=== PATIENT | male | born 1970 | race Caucasian/White ===

== ENCOUNTER 2024-06-23 17:15 | Emergency (ER) | payer OTHER ==
[~2024-06-23] VITALS: Ht 182.9 cm; Wt 104.2 kg
[~2024-06-23 17:15] MED LIST: CARAFATE1 GM PO
[2024-06-23] MEDS ORDERED: NADOLOL80 MG PO (17:24)
[2024-06-23] MEDS ORDERED: VAZALORE81 MG PO (17:25)
[2024-06-23] MEDS ORDERED: LOPERAMIDE2 MG PO (17:26)
[2024-06-23] MEDS ORDERED: FLUOROMETHOLONE5 ML OPTH (17:26)
[2024-06-23] MEDS ORDERED: OMEPRAZOLE20 MG PO (17:26)
[2024-06-23] MEDS ORDERED: LIPITOR20 MG PO (17:26)
[2024-06-23] MEDS ORDERED: HYDROCHLOROTH12.5 M1 PO (17:27)
[2024-06-23] MEDS ORDERED: MONTELUKAST SOD10 MG PO (17:27)
[2024-06-23] MEDS ORDERED: LEVOTHYROXINE100 MC2 PO (17:27)
[2024-06-23] MEDS ORDERED: ZESTRIL40 MG PO (17:28)
[2024-06-23] MEDS ORDERED: HYDROCODONE/APAP 10/325 1 TAB PO ONE (18:45)
[2024-06-23 20:55] VITALS: BP 161/65
== END 2024-06-23 20:55 | disposition other institution, planned readmission (95) ==
LOC: ED 17:15
DX: S93.601A Unspecified sprain of right foot, initial encounter (principal); I25.2 Old myocardial infarction; I11.0 Hypertensive heart disease with heart failure; I50.9 Heart failure, unspecified; W10.9XXA Fall (on) (from) unspecified stairs and steps, initial encounter; Z79.899 Other long term (current) drug therapy; Z79.82 Long term (current) use of aspirin
CPT/HCPCS: 73610; 73630; 99283; A9270

== ENCOUNTER 2025-02-04 18:43 | Inpatient (IN) | payer OTHER ==
[~2025-02-04] VITALS: Ht 182.9 cm; Wt 103.7 kg
[~2025-02-04 18:43] MED LIST changes: +ADULT ASPIRIN R81 MG PO; +FLUOROMETHOLONE5 ML OPTH; +HYDROCHLOROTH12.5 M1 PO; +LIPITOR20 MG PO; +LOPERAMIDE2 MG PO; +MONTELUKAST SOD10 MG PO; +NADOLOL80 MG PO; +OMEPRAZOLE20 MG PO; +SEVOFLURANE 250 ML BTL INH ONE; +SYNTHROID112 MCG PO; +ZESTRIL40 MG PO
[2025-02-04 19:13] LABS: BASOPHILS 0.9 % (0.2-1.2); EOSINOPHILS 1.7 % (0.8-7.0); LYMPHOCYTES 13.8 % (21.8-53.1); MCH 27.7 PG (25.7-32.2); MCHC 32.1 g/dL (32.3-36.5); MCV 86.2 fL (79.0-92.2); MONOCYTES 9.6 % (5.3-12.2); NEUTROPHILS 73.5 % (34.0-67.9); RBC 4.84 M/uL (4.63-6.08)
[2025-02-04 19:23] LABS: ALT (SGPT) 9.0 U/L (14-59); AST (SGOT) 12.0 U/L (15-37); GLOMERULAR FILTRATION RATE,EST 106.0 mL/min (>60); PROTEIN, TOTAL 7.1 g/dL (6.4-8.2); UREA NITROGEN 11.0 mg/dL (7-18)
[2025-02-04] MEDS ORDERED: LACTATED RINGER'S 1,000 ML IV ONE (20:00)
[2025-02-04] MEDS ORDERED: HYDROmorphone HCL 1 MG/ML SYR IV PRN (20:00)
[2025-02-04] MEDS ORDERED: FAMOTIDINE 20 MG/ 2 ML VIAL IV SCH ×2 (22:12)
[2025-02-04] MEDS ORDERED: DEXTROSE 5% - LACTATED RINGERS 1,000 ML IV SCH ×2 (22:15)
[2025-02-04] MEDS ORDERED: PROCHLORPERAZINE EDISYLATE 10 MG/2 ML VIAL IV PRN ×2 (22:15)
[2025-02-04] MEDS ORDERED: HYDROMORPHONE IV PRN ×2 (22:15)
[2025-02-04] MEDS ORDERED: NALOXONE HCL 2 MG/2 ML SYR IV ONE ×2 (22:30)
[2025-02-04] MEDS ORDERED: PIPERACILLIN/TAZOBACTAM 4.5 GM in DEXTROSE 5% 100 ML IV SCH (22:45)
[2025-02-04] MEDS ORDERED: HYDROMORPHONE IV SCH (22:45)
[2025-02-04] MEDS ORDERED: NALOXONE HCL 0.4 MG SYR IV PRN (22:45)
[2025-02-04] MEDS ORDERED: HYDROmorphone HCL 1 MG/ML SYR IV ONE (23:30)
[2025-02-04 23:45] VITALS: BP 149/98
[2025-02-05] VITALS (11 sets, daily range): BP systolic 140–169; BP diastolic 80–111
--- NOTE | 2025-02-05 01:04 | NUR ---
PT TO FLOOR AT APPROX 2350 WITH ED RN VIA STRETCHER. PT ALERT AND ORIENTED. PT IN FOUR POINT RESTRAINTS. GUARDS X 2 PRESENT. PT ABLE TO TRANSFER SELF FROM BED TO STRETCHER. REPORTS RECEIVED. VS OBTAINED. PT REPORTS ABD PAIN TOLERABLE AT THIS TIME. DENIES NAUSEA. BOWEL TONES ACTIVE. ABD SOFT. UP TO BR WITH GUARD ASSIST TO VOID AND HAVE BM. PT ORIENTED TO ROOM AND NURSE CALL LIGHT. DENIES QUESTIONS OR CONCERNS. CALL LIGHT IN REACH.
--- NOTE | 2025-02-05 02:28 | NUR ---
EMERGENCY VETERINARIAN STARTED PER MD ORDER. VERIFIED WITH FLOAT AND SUMMER LAW ASSOCIATE. EMERGENCY VETERINARIAN INSTRUCTIONS PROVIDED TO PATIENT AND GUARDS X 2 IN ROOM. QUESTIONS ANSWERED. CPOX IN PLACE. PT NPO. ORAL SWABS PROVIDED. IVF INFUSING PER ORDER. NO FURTHER NEEDS. CALL LIGHT IN REACH.
[2025-02-05 03:39] LABS: BLOOD/HGB, URINE TRACE-I (Negative); KETONE, URINE NEGATIVE (Negative); LEUK ESTERASE, URINE NEGATIVE (negative); NITRITE, URINE NEGATIVE (negative)
--- NOTE | 2025-02-05 03:42 | NUR ---
CALL LIGHT ANSWERED. PT UP TO BR TO VOID AND HAVE SMALL LIQUID BM. BACK TO BED, KAYLA WELL. UA SENT TO LAB. PT REPORTS PAIN TOLERABLE WITH VP EMERGING MEDIA. EtCO2 MONITOR IN PLACE. NO FURTHER NEEDS.
[2025-02-05 03:44] LABS: BACTERIA, URINE RARE /hpf (negative); CASTS, URINE NONE SEEN \\lpf; CRYSTALS, URINE NONE SEEN (0-1+); EPITHELIAL CELLS, URINE SQUAMOUS 1+ /lpf (0-1+); REFLEX CULTURE, URINE No (No)
[2025-02-05 05:21] LABS: BASOPHILS 1.1 % (0.2-1.2); EOSINOPHILS 1.8 % (0.8-7.0); LYMPHOCYTES 14.1 % (21.8-53.1); MCH 28.3 PG (25.7-32.2); MCHC 32.8 g/dL (32.3-36.5); MCV 86.4 fL (79.0-92.2); MONOCYTES 11.8 % (5.3-12.2); NEUTROPHILS 70.5 % (34.0-67.9); RBC 4.63 M/uL (4.63-6.08)
[2025-02-05] MEDS ORDERED: PIPERACILLIN/TAZOBACTAM 4.5 GM in DEXTROSE 5% 100 ML IV SCH ×3 (06:00→22:00)
--- NOTE | 2025-02-05 06:55 | NUR ---
PT REPORTS NAUSEA. PRN FOR N/V ADMIN PER EMAR. NEW IV PLACED IN RIGHT HAND X 1 ATTEMPT. PT KAYLA WELL. IV ABX INFUSING PER ORDER. VS AND I&O OBTAINED. GUARDS X 2 IN ROOM. NO FURTHER NEEDS. CALL LIGHT IN REACH.
--- NOTE | 2025-02-05 07:17 | NUR ---
VERBAL REPORT RECIEVED BY KARLA BROWN. PATIENT IN BED WITH CORRECTIONAL OFFICERS AT BEDSIDE. CORRECTIONAL OFFICERS ASSIST PATIENT TO THE BATHROOM AT THIS TIME. NO FURTHER NEEDS, ORIENTED TO CALL LIGHT.SYNCHRO ASSEMBLER PROGRAM VERIFIED WITH KARLA BROWN AND KARLA NUNN.
--- NOTE | 2025-02-05 08:39 | NUR ---
IN ROOM WITH PATIENT DR. ROJAS CAME IN AND IS AWARE OF CARDIAC HX AND IRREGULAR HR. DR. ROJAS DISCUSSES WITH PATIENT THAT HE WILL ADDRESS HIS HR WITH MEDICATIONS IN THE OR. PATIENT DENIES ANY NEEDS AT THIS TIME, CALL LIGHT IN REACH. E[employer]I OFFICERS AT BEDSIDE. CHAIR POST MACHINE OPERATOR PUMPS IN PLACE, ENDTITLE CO2 38, 8 RBP, CPOX SPO2 94%, HR 76.
[2025-02-05] MEDS ORDERED: LEVOTHYROXINE SODIUM 50 MCG TAB PO SCH ×2 (09:00)
--- NOTE | 2025-02-05 09:17 | NUR ---
PAUSED AND UNHOOKED ALL IV'S TO ALLOW PT TO CHANGE INTO GOWN AND DO PREOP WIPEDOWN.
--- NOTE | 2025-02-05 09:30 | NUR ---
PATIENT DID HIS OWN PEIER CARE. CHANGED BED LINENS. PATIENT ALSO WASHED HIS FACE. PATIENT DID HIS OWN SURGICAL WIPE DOWN EXCEPT HE NEEDED HELP ON WIPEING DOWN HIS BACK. PATIENT HAS A NEW GOWN AND SOCKS.
[2025-02-05] MEDS ORDERED: NABUMETONE500 MG PO (09:57)
[2025-02-05] MEDS ORDERED: MIRALAX119 GM PO (10:08)
[2025-02-05] MEDS ORDERED: DERMAREST ECZE118 ML TOP (10:11)
[2025-02-05] MEDS ORDERED: VITAMIN B-121000 MCG PO (10:11)
[2025-02-05] MEDS ORDERED: VITAMIN D325 MC2 PO (10:12)
--- NOTE | 2025-02-05 10:12 | NUR ---
MED REC COMPLETE
--- NOTE | 2025-02-05 11:30 | NUR ---
PATIENT COMPLAINS OF NAUSEA AT THIS TIME, PRN COMPAZINE GIVEN PER PATIENT REQUEST (SEE EMAR). PATIENT REQUESTS TO TURN OFF WEB ANALYST PUMP OFF PATIENT STATES "I DO NOT FEEL THE NEED FOR IT AT THIS TIME." WEB ANALYST PUMP TURNED OFF PER PATIENT REQUEST. PATIENT DENIES ANY NEEDS AT THIS TIME. CALL LIGHT IN REACH.
--- NOTE | 2025-02-05 11:38 | NUR ---
UR CLINICAL REVIEW: MCG-PER MCG REVIEW MEETS INPT FOR GALLBLADDER ISC WITH NEED FOR CHOLECYSTECTOMY [facility]P-[facility] INPT 02/04/25 @ 2220 ORDER MATCHES [facility] CLINIC[facility] FAXED TO DOC FOR REVIEW DISCHARGE TO HOME WHEN STABLE 02/05/25 DC REVIEW
--- NOTE | 2025-02-05 11:52 | NUR ---
PT LEAVES MED-SURG VIA BED, ESCORTED BY KARLA MONTOYA TO SURGERY.
[2025-02-05] MEDS ORDERED: DEXAMETHASONE SOD PHOS 4 MG/ML VIAL ONE (12:17)
[2025-02-05] MEDS ORDERED: ACETAMINOPHEN 1,000 MG/100 ML VIAL ONE (12:17)
[2025-02-05] MEDS ORDERED: fentaNYL citrate 100 MCG/2 ML VIAL ONE (12:17)
[2025-02-05] MEDS ORDERED: SUCCINYLCHOLINE IN 0.9% NACL 200 MG/10 ML SYRINGE ONE (12:17)
[2025-02-05] MEDS ORDERED: LIDOCAINE HCL 2% 20 MG/ML VIAL INJ ONE (12:17)
[2025-02-05] MEDS ORDERED: ROCURONIUM BROMIDE 50 MG/5 ML SYR ONE ×2 (12:17→14:01)
[2025-02-05] MEDS ORDERED: LIDOCAINE HCL 2% 5 ML SDV ONE (12:17)
[2025-02-05] MEDS ORDERED: KETAMINE in NS 50 MG/5 ML SYR ONE (12:17)
[2025-02-05] MEDS ORDERED: SUGAMMADEX SODIUM 200 MG/2 ML ML ONE (12:17)
[2025-02-05] MEDS ORDERED: KETOROLAC TROMETHAMINE 30 MG/ML VIAL ONE (12:18)
[2025-02-05] MEDS ORDERED: MIDAZOLAM HCL 2 MG/2 ML VIAL ONE (12:25)
[2025-02-05] MEDS ORDERED: fentaNYL citrate 50 MCG/ML SDV IV PRN (14:00)
[2025-02-05] MEDS ORDERED: NALOXONE HCL 0.4 MG SYR IV PRN ×2 (14:00→15:00)
[2025-02-05] MEDS ORDERED: PROCHLORPERAZINE EDISYLATE 10 MG/2 ML VIAL IV PRN ×2 (14:00→15:00)
[2025-02-05] MEDS ORDERED: HYDROmorphone HCL 1 MG/ML SYR IV PRN ×2 (14:00→15:00)
[2025-02-05] MEDS ORDERED: IBLOOD GLUCOSE TEST STRIP 1 EA TEST VI PRN (14:00)
[2025-02-05] MEDS ORDERED: LABETALOL HCL 20 MG/4 ML VIAL ONE (14:53)
[2025-02-05] MEDS ORDERED: LACTATED RINGER'S 1,000 ML IV SCH (15:00)
--- NOTE | 2025-02-05 15:20 | NUR ---
02/05/25 1520 Sheets,Lorena 1448 PT ARRIVED TO PACU WITH ORAL AIRWAY AND 6L VIA MASK IN PLACE. RESP EVEN AND UNLABORED. 1453 PT WOKE AND STARTED GRIMACING AND PULLING LEGS UP IN BED, HOB INCREASED AND KNEES BENT UP. ORAL AIRWAY REMOVED AND PT EASILY FALLS BACK TO SLEEP WITH SNORING NOTED. 1454 BP MEDICATION GIVEN BY MEDIA DEVELOPER, 1456 O2 MASK REMOVED. BP STARTING TO DECREASE NOTED. PT RATES PAIN 01/25, "OH, IT HURTS SO BAD." THEN EASILY FALLS BACK TO SLEEP WITH SNORING NOTED. 1511 PT ASLEEP OFF AND ON, O2 SAT DECREASED TO HIGH 80S AND 2L NC PLACED WITH DEEP BREATHING ENCOURAGED. O2 INCREASED TO MID 90S.
--- NOTE | 2025-02-05 15:47 | NUR ---
PT ARRIVES TO MED-SURG VIA BED AT 1537, ESCORTED BY KARLA DAWSON, VERBAL REPORT RECEIVED. PT RESTS WITH EYES CLOSED, RESP EVEN AND UNLABORED. PT RESPONDS EASILY TO VOICE, DENIES NAUSEA, REPORTS 10/10 WHEN ASKED. CPOX IN PLACE, PT, SPO2 96% ON 2 LPM NC, VSS. SCD'S TO BLE. KENNEDY DRAIN EXITS RLQ, SEROSANGUINEOUS DRAINAGE NOTED. LAP SITES X3 WELL APPROXIMATED WITH SKIN GLUE, SMALL AMOUNT OF SHADOWING NOTED ON DRAIN DRESSING. ABDOMEN MODERATELY DISTENDED AND TENDER TO TOUCH. BT HYPOACTIVE X4 QUADRANTS, HR IRREGULAR TO PT BASELINE. RESTRAINTS IN PLACE TO BLE, BUE AND WAIST, EOCI GUARDS X2 IN ROOM. CALL LIGHT IN REACH.
--- NOTE | 2025-02-05 17:40 | NUR ---
PATIENT COMPLAINS OF 10/10 ABD PAIN, PRN PAIN MEDICATION GIVEN (SEE EMAR). VSS FOR PATIENT BASELINE. CPOX AT BEDSIDE SPO2 94%, PULSE 91. PATIENT ON 2L NC, RESPS ARE 12 BPM, BREATHING EVEN AND UNLABORED. LAP SITES X 3 WELL APRROXIMATED. SERSOSANGUIENOUS DRAINAGE NOTED AT THE DRAIN SITE, DRAINED 100ML OUT. ABD MODERATELY DISTENDED, HYPOACTIVE BOWEL SOUNDS IN ALL FOUR QUADRANTS. HEART RATE IRREGULAR TO PATIENT BASELINE. RESTRAINTS IN PLACE WAIST, BLE AND BUP. EOCI OFFICERS AT BEDSIDE X2. CALL LIGHT IN REACH.
--- NOTE | 2025-02-05 18:42 | NUR ---
PATIENT RESTING IN BED EYES CLOSED BREATHING EVEN AND UNLABORED. RESPS ARE 14 BPM. CPOX AT BEDSIDE SPO2 95% ON 2L NC, 82 BPM. ABD HAS MODERATE DISTENTION AND TENDER AT TOUCH. HYPOACTIVE BOWEL SOUNDS IN ALL FOUR QUADRANTS. LAP SITES X3 WELL APPROXIMATED, KENNEDY DRAIN AT RLQ DRAINS 30ML SEROSANGUINEOUS. DRESSING HAS SCANT AMOUNT OF DRAINAGE ON THE DRAIN DRESSING. HR IRREGULAR TO PATIENT BASELINE. RESTRAINTS IN PLACE TO WAIST, BLE AND BUE. EOCI OFFICERS X2 AT BEDSIDE. CALL LIGHT IN REACH.
--- NOTE | 2025-02-05 19:25 | NUR ---
REPORT RECEIVED FROM DAY SHIFT RN. PT LYING IN BED RESTING WITH EYES CLOSED. RESPIRATIONS EVEN. GUARDS X 2 IN ROOM. WHITE BOARD UPDATED. CALL LIGHT IN REACH.
--- NOTE | 2025-02-05 20:07 | NUR ---
PT DROWSY. AROUSES TO VOICE. REPORTS ABD PAIN 10/25. PRN FOR PAIN ADMIN PER EMAR. PT TAKING SIPS OF WATER. IVF RESUMED PER ORDER. BOWEL TONES HYPOACTIVE. PT DENIES FLATUS. SKYLER WITH 25 ML SEROSANG DRAINAGE. NO C/O NAUSEA. 2L/NC IN PLACE. SpO2 MID 90'S. NO FURTHER NEEDS. CALL LIGHT IN REACH.
[2025-02-05] MEDS ORDERED: MONTELUKAST SODIUM 10 MG TAB PO SCH ×2 (21:00)
--- NOTE | 2025-02-05 22:27 | NUR ---
EVENING ASSESSMENT COMPLETE. SCHEDULED MEDS ADMIN PER EMAR. NO C/O PAIN OR NAUSEA AT THIS TIME. JELLO PROVIDED. BOWEL TONES ACTIVE. PT DENIES FLATUS. LAP SITES X 3 WELL APPROXIMATED WITH NO REDNESS OR DRAINAGE. SKYLER RLQ WITH 50 ML SEROSANG DRAINAGE. SMALL AMOUNT SEROSANG DRAINAGE NOTED ON SKYLER DRESSING. CPOX/SCD'S IN PLACE. 2L/NC IN PLACE. SpO2 MID 90'S. NO FURTHER NEEDS. CALL LIGHT IN REACH.
--- NOTE | 2025-02-05 22:52 | NUR ---
PT UP TO BR WITH MINIMAL SBA TO VOID. BACK TO BED, KAYLA WELL. REPORTS ABD PAIN 10/25. PRN FOR PAIN ADMIN PER EMAR. ICE PACK PROVIDED FOR COMFORT. NO FURTHER NEEDS.
[2025-02-06] VITALS (10 sets, daily range): BP systolic 134–145; BP diastolic 66–94
--- NOTE | 2025-02-06 00:47 | NUR ---
PT RESTING IN BED WITH EYES CLOSED. RESPIRATIONS EVEN. CALL LIGHT IN REACH.
--- NOTE | 2025-02-06 02:28 | NUR ---
IV PUMP ALARMING. ISSUE RESOLVED. VS AND I&O OBTAINED. PT REPORTS ABD PAIN 10/25. PRN FOR PAIN ADMIN PER EMAR. ABD ASSESSMENT UNCHANGED. ICE PACK PROVIDED FOR COMFORT. NO FURTHER NEEDS. CALL LIGHT IN REACH.
[2025-02-06 05:30] LABS: BASOPHILS 0.3 % (0.2-1.2); EOSINOPHILS 0 % (0.8-7.0); LYMPHOCYTES 10.2 % (21.8-53.1); MCH 28.0 PG (25.7-32.2); MCHC 32.4 g/dL (32.3-36.5); MCV 86.5 fL (79.0-92.2); MONOCYTES 12.1 % (5.3-12.2); NEUTROPHILS 76.8 % (34.0-67.9); RBC 4.36 M/uL (4.63-6.08)
--- NOTE | 2025-02-06 05:41 | NUR ---
LAB IN FOR MORNING DRAW. VS AND I&O OBTAINED. PRN ADMIN FOR 11/25 ABD PAIN. IV ABX INFUSING PER ORDER. PT DENIES FURTHER NEEDS. CALL LIGHT IN REACH.
[2025-02-06 05:50] LABS: ALT (SGPT) 20.0 U/L (14-59); AST (SGOT) 15.0 U/L (15-37); GLOMERULAR FILTRATION RATE,EST 110.0 mL/min (>60); PROTEIN, TOTAL 6.5 g/dL (6.4-8.2); UREA NITROGEN 10.0 mg/dL (7-18)
[2025-02-06] MEDS ORDERED: LEVOTHYROXINE SODIUM 112 MCG TAB PO SCH (06:00)
--- NOTE | 2025-02-06 06:59 | NUR ---
PHONE CALL TO MD, TELEPHONE ORDER TO CONTINUE IVF CONTINUOUS. CONTINUE pt ON CLEAR LIQUID DIET FOR NOW. ORDERS REPEATED BACK AND UPDATED.
--- NOTE | 2025-02-06 07:35 | NUR ---
RECEIVED REPORT FROM KARLA BROWN. PT LAYING IN BED WATCHING TV. PT REPORTS PAIN 7-8/10, EDUCATED ON WALKING, PT VERBALIZES UNDERSTANDING. PT REQUESTS NEXT AVAILABLE PAIN MED, ICE WATER GIVEN, CALL LIGHT IN REACH, GUARD AT BEDSIDE, ICE PACK GIVEN, WHITEBOARD UPDATED.
--- NOTE | 2025-02-06 07:55 | NUR ---
PATIENT IN CHAIR AT THIS TIME. PASTE THINNER CHARTED HOURLY ROUNDS AND ASSISTED PATIENT TO CHAIR. CALL LIGHT WITHIN REACH, NO FURTHER NEEDS.
--- NOTE | 2025-02-06 09:53 | NUR ---
PATIENT IN BED AT THIS TIME. STOCK RECEIVER CHARTED VITALS AND I&O'S. STOCK RECEIVER ASLSO CHANGED PATIENTS BED LINENS. CALL LIGHT WITHIN REACH, NO FURTHER NEEDS.
[2025-02-06] MEDS ORDERED: HYDROCODONE/ACETA 7.5/325 TAB PO PRN (11:00)
--- NOTE | 2025-02-06 11:05 | OR ---
[facility] [address] [place], [place] [address] Signed DATE OF OPERATION: 02/05/2025 SURGEON: Cordell Rojas DO PREOPERATIVE DIAGNOSIS: Acute cholecystitis with cholelithiasis. 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 PROCEDURES PERFORMED: 1. Laparoscopic cholecystectomy. 2. Fistulas closure resection. ANESTHESIA: General. ESTIMATED BLOOD LOSS: Less than 100 mL. DRAINS: Include Kameron drain x1. COMPLICATION: None. DESCRIPTION OF PROCEDURE: The patient was brought to the operative room, placed in supine position. After induction of general anesthesia, the abdomen was then sterilely shaved, prepped, and draped in usual fashion. Utilizing linear incision in subumbilical region, the skin was incised with a scalpel. A 5 mm disposable trocar with a laparoscope was then introduced into the incision and trocar was placed bluntly. Utilizing Visiport technique, the abdomen was then insufflated with approximately 4 L of CO2 gas through a separate stab incision in the right lateral quadrant. Two separate 5 mm disposable trocars were placed under direct visualization and in the epigastric region, a 10 mm disposable trocar was placed under direct visualization as well. His stent was then visualized and found to be out of harm's way. Inspection of the upper abdomen noted significant adherence to the anterior abdominal wall to the omentum and this was taken down utilizing blunt and sharp technique and LigaSure and cautery. This exposed the region Electronically Signed By: CORDELL ROJAS DO 02/06/25 1105 PATIENT NAME: AFSHAN GUAN OPERATIVE REPORT DATE OF : 70 REPORT #: [id number] PHYSICIAN: CORDELL ROJAS DO PCP: [facility] CORRECTIONAL REPORT IS CONFIDENTIAL AND NOT TO BE RELEASED WITHOUT AUTHORIZATION [facility] [address] [place], [place] [address] Signed of the liver. At which time, the colon was noted to be significantly adherent to the anterior surface of the liver ending the gallbladder fossa to the point where it was unrecognizable what anatomic procedures were there or not. Utilizing blunt and sharp technique and Bovie cautery as well as the LigaSure device, a careful dissection was then carried out, mobilizing the transverse colon. Upon mobilization of the transverse colon, the gallbladder was noted to be grossly perforated with purulent material. The beginnings of a colochole fistula was then noted. It was transected and clipped under direct visualization. No bleeding sites were noted along the inferior portion of the adherence of the gallbladder region to the anterior portion of the duodenum, a fistulous channel was then noted. It was clipped. It was oversewn with a running V-Loc stitch of 0 Ethibond. A Noé patch was then placed on this region of the duodenum as well. The dissection continued in the region of the gallbladder fossa. Gallbladder was noted to be grossly inflamed and perforated in its entirety on the anterior portion of the gallbladder wall. The apex of the gallbladder was then identified. It was grasped with grasping forceps. The gallbladder was then entered sharply. The large stone was then excised and passed off the field for pathologic review. The gallbladder was then further mobilized off the liver bed. The apparent region of the cystic duct and cystic artery was identified, encircled, clipped 2 times proximally, 1 time distally, and then divided. This freed to mobilize the remnant of the ruptured gallbladder and it was passed off the field for pathologic review. The entire region was then copiously irrigated and dried. Some Surgicel powder was then placed in the liver bed as well as on the fistulous regions of the colon and duodenum. A 19 Kameron drain was then placed intra-abdominally, brought up through the 5 mm port, was placed in the gallbladder fossa region and along the fistulous resection. This was brought up through the 5 mm port, secured to the anterior skin with interrupted 2-0 nylon. No further pathology was noted. All instrumentation was removed. The entry site at the epigastric region was closed with interrupted [id number] of 0 Vicryl under direct visualization. The incision sites were irrigated and dried. All instruments were removed. All trocars were removed and the skin was closed with 4-0 Monocryl in subcuticular fashion. Dermabond dressing was applied. 1. This is a 54-year-old male seen with acute cholecystitis and cholelithiasis. The gallbladder noted to be completely ruptured and gangrenous and it was adherent below that portion and anterior portion of the gallbladder was adhered to the colon. 2. Presumed fistulas were noted from the gallbladder to the colon and also 1 from the duodenum as well. These fistulas were resected. The gallbladder was removed and drains were placed. The patient tolerated the procedure well and taken to recovery room in satisfactory condition. Electronically Signed By: CORDELL ROJAS DO 02/06/25 1105 PATIENT NAME: AFSHAN GUAN OPERATIVE REPORT DATE OF : 70 REPORT #: [id number] PHYSICIAN: CORDELL ROJAS DO PCP: [facility] CORRECTIONAL REPORT IS CONFIDENTIAL AND NOT TO BE RELEASED WITHOUT AUTHORIZATION [place] [id number] Signed DO SANTOSH Harding/AMANDA /[id number] Copies: ~ Electronically Signed By: CORDELL ROJAS DO 02/06/25 1105 PATIENT NAME: AFSHAN GUAN OPERATIVE REPORT DATE OF : 70 REPORT #: [id number] PHYSICIAN: CORDELL ROJAS DO PCP: [facility] CORRECTIONAL REPORT IS CONFIDENTIAL AND NOT TO BE RELEASED WITHOUT AUTHORIZATION
--- NOTE | 2025-02-06 17:36 | NUR ---
PT WEANED TO ROOM AIR, SATTING 97%. NO LONGER ON NC, TOLERATED WELL, CPOX REMOVED PER PROTOCOL, NO OTHER NEEDS AT THIS TIME, CALL LIGHT IN REACH.
--- NOTE | 2025-02-06 18:04 | NUR ---
PATIENT IN BED AT THIS TIME. BOWLING TEACHER CHARTED VITALS AND I&O'S. CALL LIGHT WITHIN REACH, NO FURTHER NEEDS.
--- NOTE | 2025-02-06 19:34 | NUR ---
REPORT RECEIVED FROM KARLA TABARES AND SHANNON RN. PT LAYING IN BED, IV FLUID INFUSING WELL. PT C/O 10/25 PAIN, PRN DILAUDID GIVEN ORDERED. ICE PACK APPLIED TO SURGICAL SITE PER PT REQUEST. DENIES FURTHER NEEDS. CALL LIGHT AND PERSONAL BELONGINGS IN REACH.
--- NOTE | 2025-02-06 21:33 | EKG ---
[facility] [address] [place] [address] Signed Sinus rhythm with premature atrial complexes Right bundle branch block Abnormal ECG When compared with ECG of 05-JAN-2023 19:27, premature atrial complexes are now present Right bundle branch block is now present Confirmed by Alexia Baron MD () on 02/06/2025 9:33:38 PM Electronically Signed By: ALEXIA BARON MD 02/06/[id number] PATIENT NAME: AFSHAN GUAN Electrocardiogram DATE OF : 70 PHYSICIAN: ALEXIA BARON MD REPORT #: [id number] REPORT IS CONFIDENTIAL AND NOT TO BE RELEASED WITHOUT AUTHORIZATION
--- NOTE | 2025-02-06 22:15 | NUR ---
PT LAYING IN BED. RESPIRATIONS EVEN AND UNLABORED. C/O 10/25 PAIN, PRN PAIN MEDICATION GIVEN ORDERED. IV ABX GIVEN ORDERED. REPLACED ICE PACK PER PT REQUEST. DENIES FURTHER NEEDS. CALL LIGHT IN REACH.
--- NOTE | 2025-02-06 23:45 | NUR ---
PT LAYING IN BED, WATCHING TV. RESPIRATIONS EVEN AND UNLABORED. REPORTED HIS PAIN IS DOWN TO 5/10 AFTER TAKING PAIN MEDICATION. DENIES FURTHER NEEDS. CALL LIGHT AND PERSONAL BELONGINGS IN REACH.
[2025-02-07] VITALS (10 sets, daily range): BP systolic 144–171; BP diastolic 80–95
--- NOTE | 2025-02-07 01:16 | NUR ---
PT LAYING IN BED, C/O 10/25 PAIN, PRN DILAUDID GIVEN ORDERED. DENIES FURTHER NEEDS. CALL LIGHT AND PERSONAL BELONGINGS IN NEED.
--- NOTE | 2025-02-07 03:44 | NUR ---
CALL LIGHT ANSWERED. PRN PAIN MEDICATION ADMINISTERED FOR 8/10 REPORTED ABDOMINAL PAIN. ICE WATER REFILLED. NEW ICE PACK IN PLACE ON ABDOMEN. NEW BAG IVF INFUSING WNL. CALL LIGHT IN REACH. GUARDS IN ROOM.
--- NOTE | 2025-02-07 04:47 | NUR ---
PT SLEEPING IN BED. RESPIRATIONS EVEN AND UNLABORED. IV FLUID INFUSING WELL. NO APPARENT NEEDS NOTED AT THIS TIME. CALL LIGHT AND PERSONAL BELONGINGS IN REACH.
[2025-02-07 05:48] LABS: BASOPHILS 0.9 % (0.2-1.2); EOSINOPHILS 1.1 % (0.8-7.0); LYMPHOCYTES 11.9 % (21.8-53.1); MCH 27.7 PG (25.7-32.2); MCHC 31.6 g/dL (32.3-36.5); MCV 87.6 fL (79.0-92.2); MONOCYTES 15.1 % (5.3-12.2); NEUTROPHILS 70.4 % (34.0-67.9); RBC 4.26 M/uL (4.63-6.08)
[2025-02-07 05:56] LABS: GLOMERULAR FILTRATION RATE,EST 108.0 mL/min (>60); UREA NITROGEN 7.0 mg/dL (7-18)
--- NOTE | 2025-02-07 06:42 | NUR ---
PT LAYING IN BED. VITAL SIGNS TAKEN AND RECORDED. INTAKE OUTPUT RECORDED. PT C/O 10/25 PAIN, PRN DILAUDID GIVEN ORDERED. PT REPORTED BEING ABLE TO PASS GAS X1, NO EPISODE OF NAUSEA. TOLERATED CLEARS. DENIES FURTHER NEEDS. CALL LIGHT AND PERSONAL BELONGINGS IN REACH.
--- NOTE | 2025-02-07 07:39 | NUR ---
RECIEVED REPORT FROM KARLA JACOB. PT SITTING UP IN BED WATCHING TV, REPORTS NO NEEDS AT THIS TIME. CALL [facility] IN REACH, WHITEBOARD UPDATED.
--- NOTE | 2025-02-07 08:53 | NUR ---
PATIENT RESTING IN BED WATCHING TV WITH [employer] X2 AT BEDSIDE. PATIENT DENIES ANY NEEDS AND STATES "IT'S DOING FINE" WHEN ASKED ABOUT HIS PAIN LEVEL. CALL LIGHT AND PERSONAL BELONGINGS ARE WITHIN REACH.
--- NOTE | 2025-02-07 10:48 | NUR ---
PT LAYING IN BED WATCHING TV, REPORTS NO NEEDS AT THIS TIME. CALL LIGHT IN REACH, HOUSEKEEPING AND GUARDS AT BEDSIDE.
--- NOTE | 2025-02-07 11:35 | NUR ---
PT LAYING IN BED WATCHING, REPORTS NO PAIN OR NAUSEA. NO OTHER NEEDS AT THIS TIME, CALL LIGHT IN REACH, GUARDS AT BEDSIDE.
--- NOTE | 2025-02-07 13:24 | NUR ---
MD ARRIVES TO NURSES STATION STATING PT REQUESTING DILAUDID. PLAN TO DISCHARGE TOMORROW, ASKED MD IF WE CAN TRANSITION JUST TO ORAL PAIN MEDS PATIENT DISCHARGING TOMORROW, PER MD GIVEN X1 DOSE OF DILAUDID AND THEN DISCONTINUE AND CAN MANAGE PAIN WITH NORCO. THIS RN INTO ROOM TO GIVEN DILAUDID
--- NOTE | 2025-02-07 14:24 | NUR ---
No needs from at this time.
--- NOTE | 2025-02-07 15:14 | NUR ---
PTS SKYLER DRAIN LEAKING, ASSESSED. NEW GOWN GIVEN TO PT. PAIN REPORTED, PAIN MED GIVEN. NO OTHER NEEDS AT THIS TIME, CALL LIGHT IN REACH, GUARDS AT BEDSIDE.
--- NOTE | 2025-02-07 19:20 | NUR ---
REPORT RECIEVED FROM KARLA ORTEGA AND KARLA TABARES. PATIENT LAYING IN BED, HOB ELEVATED. GUARDS X2 AT BEDSIDE. PATIENT RESTRAINTS ON. IVF INFUSING WITHOUT DIFFICULTY. LAP SITES X3 CLEAN, DRY, WITH GLUE, NO REDNESS OR DRAINAGE. SKYLER DRAIN DRAINING WITHOUT DIFFICULTY. SERASANGUANOUS. PATIENT REQUESTING PRN PAIN MEDS. BELONGINGS AND CALL LIGHT IN REACH.
--- NOTE | 2025-02-07 19:49 | NUR ---
PRN PAIN MEDICATION GIVEN PER REQUEST OF 10/25 PAIN IN ABD. NEW IVF INFUSING WITHOUT DIFFICULTY. ICE AND FRESH WATER GIVEN PER CUSTOMER INSIGHT ANALYST. GUARDS X2 AT BEDSIDE. NO OTHER NEEDS AT THIS TIME. CALL LIGHT IN REACH.
--- NOTE | 2025-02-07 20:16 | NUR ---
PT OOB TO BR AND BACK TO BED. VITALS DONE. CALL LIGHT IN REACH, NO NEEDS AT THIS TIME.
--- NOTE | 2025-02-07 20:25 | NUR ---
SCHEDULED MEDICATIONS GIVEN WITHOUT COMPLICATIONS. PATIENT LAYING IN BED AWAKE AND ALERT WITH RESTRAINTS, GUARDS X2 AT BEDSIDE. SKYLER DRAIN EMPTIED AND RECORDED. ASSESSMENT COMPLETED. PATIENT DENIES NEEDS AT THIS TIME. CALL LIGHT AND BELONGINGS IN REACH.
--- NOTE | 2025-02-07 22:07 | NUR ---
ANTIBIOTIC INFUSING WITHOUT DIFFICULTY. PAIN REASSESSMENT COMPLETED. PATIENT LAYING IN BED WITH HOB ELEVATED. AWAKE AND ALERT. RESTRAINTS IN PLACE, CMS INTACT. GUARDS X2 AT BEDSIDE. NO OTHER NEEDS NOTED AT THIS TIME. CALL LIGHT IN REACH.
--- NOTE | 2025-02-07 23:56 | NUR ---
ROUNDED ON PATIENT, UP TO BATHROOM WITH TWO GUARDS IN ROOM. NO NEEDS IDENTIFIED AT THIS TIME. CALL LIGHT IN REACH.
--- NOTE | 2025-02-08 00:12 | NUR ---
PT C/O ABDOMINAL PAIN 11/25. MEDICATED WITH 2 HYDROCODONE. GUARDS AT BEDSIDE. PT INSTRUCTED TO CALL FOR ASSISTANCE. VERBALIZED UNDERSTANDING. CALL FISHER IN REACH, BED IN LOW POSITION AND LOCKED. SIDERAILS UP X4. NO ADDITIONAL COMPLAINTS
--- NOTE | 2025-02-08 01:40 | NUR ---
ANSWERED PATIENT CALL LIGHT DUE TO ANTIBIOTIC COMPLETION. PATIENT AWAKE AND ALERT LAYING IN BED WITH RESTRAINTS APPLIED, CMS INTACT. GUARDS X2 AT BEDSIDE. PATIENTS PAIN REASSESED AT A 09/25. IVF INFUSING WITHOUT COMPLICATIONS. PATIENT DENIES NEEDS AT THIS TIME. CALL LIGHT IN REACH.
--- NOTE | 2025-02-08 03:17 | NUR ---
ROUNDED ON PATIENT, PATIENT RESTING WITH EYES CLOSED, RESPIRATIONS EVEN AND UNLABORED. GUARDS X2 AT BEDSIDE. NEW IVF BAG HUNG PER ORDER, INFUSING WITHOUT DIFFICULTY. NO NEEDS, CALL LIGHT IN REACH
[2025-02-08 05:29] LABS: BASOPHILS 1.0 % (0.2-1.2); EOSINOPHILS 3.9 % (0.8-7.0); LYMPHOCYTES 15.4 % (21.8-53.1); MCH 28.0 PG (25.7-32.2); MCHC 31.6 g/dL (32.3-36.5); MCV 88.6 fL (79.0-92.2); MONOCYTES 14.3 % (5.3-12.2); NEUTROPHILS 64.5 % (34.0-67.9); RBC 4.46 M/uL (4.63-6.08)
--- NOTE | 2025-02-08 05:56 | NUR ---
SCHEDULED ANTIBIOTIC AND IVF INFUSING WITHOUT DIFFICULTY. PRN MEDICATION GIVEN PER PATIENT REQUEST FOR 7/10 ABD PAIN. PATIENT LAYING IN BED WITH RESTRAINTS APPLIED, CMS INTACT. GUARDS X2 AT BEDSIDE. FOCUSED ASSESSMENT COMPLETED, LAP SITES WITH DERMABOND WITHOUT REDNESS OR DRAINIAGE. SKYLER DRAIN EMPTIED, SEROUS, SUCTION APPLIED TO BULB CONTINUING TO DRAIN. VS AND I&O'S COMPLETED AND DOCUMENTED. PATIENT REPOSITIONED IN BED. NEW ICE PACK AND ICE WATER PROVIDED. NO OTHER NEEDS AT THIS TIME. CALL LIGHT IN REACH.
[2025-02-08 06:02] VITALS: BP 148/98
[2025-02-08 06:03] VITALS: BP 148/98
--- NOTE | 2025-02-08 07:00 | NUR ---
REPORT RECIEVED FROM KARLA ROY AND KARLA MORELAND. PATIENT RESTING IN BED WATCHING TV WITH GAURDS AT BEDSIDE. PATIENT REPORTS PAIN "TOLERABLE AT THE MOMENT". EDUCATED PATIENT ON WHEN NEXT DOSE IS AVAILABLE. PATIENT AND GUARDS ARE WITHOUT ANY NEEDS AT THIS TIME. WHITE BOARD UPDATED. CALL LIGHT AND PERSONAL BELONGINGS ARE WITHIN REACH.
--- NOTE | 2025-02-08 08:55 | NUR ---
IN ROOM TO CHECK ON PATIENT. PATIENT REPORTING NAUSEA AFTER EATING.
--- NOTE | 2025-02-08 09:05 | NUR ---
PATIENT MEDICATED PER EMAR FOR NAUSEA. PATIENT STATES HE DID NOT VOMIT. PATIENT'S SKYLER DRAINED AND WAS WITH 50ML OF SEROUS DRAINAGE. OLD DRAINAGE NOTED AROUND PATIENT'S SKYLER SITE, BLEEDING IS CONTROLLED, NO NEW DRAINAGE NOTED. PATIENT'S GOWN NOTED TO HAVE DRIED DRAINAGE ON IT WELL, NEW GOWN OFFERED. PATIENT STATES "WELL I THINK THE PLAN IS FOR ME TO LEAVE TODAY, SO I DON'T THINK I NEED IT". GOWN LEFT FOR PATIENT AT BEDSIDE. PATIENT WITH GAURDS X2 AT BEDSIDE AND DENIES FURTHER NEEDS AT THIS TIME. CALL LIGHT AND PERSONAL BELONGINGS ARE WITHIN REACH.
[2025-02-08 09:14] VITALS: BP 153/92
--- NOTE | 2025-02-08 09:37 | NUR ---
PATIENT MEDICATED PER EMAR FOR 8/[address] ROJAS REMOVED SKYLER DRAIN. PATIENT ASSESSMENT COMPLETED. FRESH ICE WATER AND ICE PACK PROVIDED. PATIENT IS WITH VIKAS Ybarra AT BEDSIDE AND IS WITHOUT FURTHER NEEDS FROM THIS RN AT THIS TIME. CALL LIGHT AND PERSONAL BELONGINGS ARE WITHIN REACH.
[2025-02-08] MEDS ORDERED: LEVOFLOXACIN500 MG PO (09:57)
[2025-02-08] MEDS ORDERED: HYDROCODON-ACE1 EA10 PO (09:57)
--- NOTE | 2025-02-08 10:17 | NUR ---
Orders for dc completed by Dr. Sosa. Orders, DC summary, surgical note, [facility]. I called and spoke with the RN. He had not recieved the fax. He will call me after he reviews orders to confirm this pts return. Above with Educational sheets placed in a manila envelope and given to the nurse discharge planner. [place] sheet was also faxed.
--- NOTE | 2025-02-08 10:32 | NUR ---
PATIENT RESTING IN BED AND IS WITHOUT ANY NEEDS AT THIS TIME. GAURDS X2 AT BEDSIDE. CALL LIGHT AND PERSONAL BELONGINGS ARE WITHIN REACH. IV FLUIDS INFUSING PER ORDER.
--- NOTE | 2025-02-08 11:01 | NUR ---
PATIENT MEDICATED PER EMAR. PATIENT DENIES ANY NEEDS AT THIS TIME. LAB IN ROOM FOR BLOOD DRAW. CALL LIGHT AND PERSONAL BELONGINGS ARE WITHIN REACH.
--- NOTE | 2025-02-08 11:08 | NUR ---
Called [facility] as I have not had a return call. I was transferred to the charge nurse. They received the orders and pt may return. Rn notified.
[2025-02-08 11:15] VITALS: BP 168/96
--- NOTE | 2025-02-08 11:36 | NUR ---
REPORT CALLED TO NAOMIE WITH [facility] AT THIS TIME. ALL QUESTIONS ANSWERED.
[2025-02-08 11:38] VITALS: BP 168/96
== END 2025-02-08 11:30 | disposition home or self-care (01) | DRG 418 ==
LOC: ED 18:43 → MS 22:20
PROVIDERS: Family Medicine; Surgery; ADMIT Surgery; ATTEND Surgery
PROC: 0DBL4ZZ Excision of Transverse Colon, Percutaneous Endoscopic Approach (ICD-10-PCS; 2025-02-05)
PROC: 3E03329 Introduction of Other Anti-infective into Peripheral Vein, Percutaneous Approach (ICD-10-PCS; 2025-02-05)
PROC: 0DQ94ZZ Repair Duodenum, Percutaneous Endoscopic Approach (ICD-10-PCS; 2025-02-05)
PROC: 0FT44ZZ Resection of Gallbladder, Percutaneous Endoscopic Approach (ICD-10-PCS; principal; 2025-02-05 11:10)
DX: K80.00 Calculus of gallbladder with acute cholecystitis without obstruction (principal); K82.A2 Perforation of gallbladder in cholecystitis; K83.3 Fistula of bile duct; K82.A1 Gangrene of gallbladder in cholecystitis; I11.0 Hypertensive heart disease with heart failure; I50.9 Heart failure, unspecified; I25.2 Old myocardial infarction; I25.10 Atherosclerotic heart disease of native coronary artery without angina pectoris; E78.00 Pure hypercholesterolemia, unspecified; E03.9 Hypothyroidism, unspecified; K21.9 Gastro-esophageal reflux disease without esophagitis; Z98.2 Presence of cerebrospinal fluid drainage device; Z79.82 Long term (current) use of aspirin; Z79.890 Hormone replacement therapy; Z79.899 Other long term (current) drug therapy
CPT/HCPCS: 00790; 36415; 71045; 74177; 80048; 80053; 81001; 83690; 83735; 85025; 93005; 93010; 94762; A9270; J0131; J0330; J0780; J1100; J1171; J1885; J2003; J2250; J2405; J2543; J2704; J3010; J3490; J7121; Q9967